=== PATIENT | male | born 1955 | race Caucasian/White ===

== ENCOUNTER 2018-04-09 09:51 | Emergency (ER) | payer OTHER ==
[~2018-04-09] VITALS: Ht 175.3 cm; Wt 130.9 kg
[2018-04-09] MEDS ORDERED: FLOMAX 0.40.4 MG/CAP PO (10:26)
[2018-04-09] MEDS ORDERED: PROSCAR 5MG5 MG PO (10:26)
[2018-04-09 10:48] LABS: COLLECTION METHOD CATHETER
[2018-04-09 10:53] LABS: MUCOUS Present /lpf; PH 5 (5-8); SQUAMOUS EPITHELIAL None Seen /hpf; URINE APPEARANCE Clear; URINE BACTERIA None Seen /hpf; URINE BILIRUBIN Negative (NEGATIVE); URINE BLOOD Negative (NEGATIVE); URINE COLOR Yellow; URINE GLUCOSE Negative (NEGATIVE); URINE KETONE Negative (NEGATIVE); URINE LEUKOCYTE ESTERASE Negative (NEGATIVE); URINE NITRATE Negative (NEGATIVE); URINE PROTEIN(semi-quant) Negative (NEGATIVE); URINE UROBILINOGEN Negative (NEGATIVE); URINE WBC 0-2 /hpf
[2018-04-09 11:57] VITALS: BP 136/99; PULSE 65; TEMP 98.1
== END 2018-04-09 11:12 | disposition home or self-care (01) ==
LOC: COL.ER 09:51
PROVIDERS: Emergency Medicine
DX: R33.9 Retention of urine, unspecified (principal); Z85.89 Personal history of malignant neoplasm of other organs and systems

== ENCOUNTER 2018-04-26 17:21 | Inpatient (IN) | payer OTHER ==
[~2018-04-26] VITALS: Ht 175.3 cm; Wt 132.2 kg
[~2018-04-26 17:21] MED LIST: ASPIRIN E.C. 8181 MG PO; DESYREL 50MG50 MG PO; FLOMAX 0.40.4 MG/CAP PO; GLUCOPHAGE850 MG/TAB PO; LEVOXYL0.075 MG PO; NORVASC 10MG10 MG PO; PAXIL40 MG PO; PROSCAR 5MG5 MG PO; ULTRAM 50MG TAB50 MG PO; ZESTRIL40 MG PO; ZOCOR 80MG80 MG PO
[2018-04-26 17:58] LABS: BASO # 0.1 (0.0-0.2); BASO % 0.5 % (0.0-2.0); EOS # 0.2 (0.0-0.7); EOS % 1.9 % (0-4.0); GRAN # 7.7 (1.4-6.5); GRAN % 69.2 % (42.2-75.2); HEMOGLOBIN 12.4 g/dl (13.5-18.0); LYMPH % 17.8 % (20.0-51.0); MEAN CELL VOLUME 85 fl (80.0-100.0); MEAN CORPUSCULAR HEMOGLOBIN 29 pg (27.0-31.0); MEAN CORPUSCULAR HGB CONC 34 g/dl (33.0-37.0); MEAN PLATELET VOLUME 8.9 fl (7.4-10.4); MONO # 0.9 (0.1-0.6); MONO % 8.2 % (1.7-9.3); PLATELET COUNT 288 K/mm3 (130-400); RED BLOOD COUNT 4.34 M/mm3 (4.20-5.60); REDCELL DISTRIBUTION WIDTH-CV 13.1 % (11.5-14.5)
[2018-04-26 18:00] LABS: HEMATOCRIT 36.7 % (42.0-52.0)
[2018-04-26 18:09] LABS: ALBUMIN 3.4 gm/dL (3.5-5.0); BILIRUBIN,TOTAL 0.4 mg/dL (0.0-1.0); C-REACTIVE PROTEIN 0.9 mg/dL (0.0-0.9); CALCIUM 8.9 mg/dL (8.4-10.2); CREATININE, serum 1.5 mg/dL (0.66-1.25); POTASSIUM 3.7 mmol/L (3.4-5.0); TOTAL PROTEIN 6.9 gm/dL (6.4-8.2)
[2018-04-26 18:17] LABS: TROPONIN-I 0.021 ng/mL (0.000-0.034)
[2018-04-26 18:47] LABS: COLLECTION METHOD CLEAN CATCH
[2018-04-26 18:55] LABS: MUCOUS Present /lpf; PH 7 (5-8); SQUAMOUS EPITHELIAL None Seen /hpf; URINE APPEARANCE Turbid; URINE BACTERIA Rare /hpf; URINE BILIRUBIN Negative (NEGATIVE); URINE BLOOD Negative (NEGATIVE); URINE COLOR Amber; URINE GLUCOSE 1+ (NEGATIVE); URINE KETONE Negative (NEGATIVE); URINE LEUKOCYTE ESTERASE 3+ (NEGATIVE); URINE NITRATE Positive (NEGATIVE); URINE PROTEIN(semi-quant) 3+ (NEGATIVE); URINE RBC >50 /hpf; URINE UROBILINOGEN Negative (NEGATIVE)
[2018-04-26 21:05] VITALS: BP 124/80; PULSE 69; TEMP 98.6
[2018-04-26] MEDS ORDERED: LOVENOX150 MG/ML SQ (22:27)
[2018-04-27] VITALS (7 sets, daily range): BP systolic 86–128; BP diastolic 38–77; PULSE 63–80; TEMP 97.8–99.8
[2018-04-27 06:43] LABS: HEMOGLOBIN 11.3 g/dl (13.5-18.0); MEAN CELL VOLUME 86 fl (80.0-100.0); MEAN CORPUSCULAR HEMOGLOBIN 29 pg (27.0-31.0); MEAN CORPUSCULAR HGB CONC 33 g/dl (33.0-37.0); MEAN PLATELET VOLUME 9.5 fl (7.4-10.4); PLATELET COUNT 285 K/mm3 (130-400); RED BLOOD COUNT 3.95 M/mm3 (4.20-5.60); REDCELL DISTRIBUTION WIDTH-CV 13.2 % (11.5-14.5)
[2018-04-27 06:48] LABS: HEMATOCRIT 33.8 % (42.0-52.0)
[2018-04-27 06:52] LABS: CALCIUM 8.5 mg/dL (8.4-10.2); CREATININE, serum 1.48 mg/dL (0.66-1.25); POTASSIUM 3.5 mmol/L (3.4-5.0)
[2018-04-27 08:19] LABS: BAND 7 % (0-10); EOSINOPHIL 2 % (0-4); LYMPHOCYTE 32 % (20.0-51.0); NEUTROPHILS 54 % (42.0-75.2)
[2018-04-27 08:23] LABS: PLATELET ESTIMATE NORMAL (NORMAL)
[2018-04-28] VITALS (7 sets, daily range): BP systolic 109–140; BP diastolic 51–91; PULSE 59–83; TEMP 98.2–99
[2018-04-28 11:24] LABS: CALCIUM 8.6 mg/dL (8.4-10.2); CREATININE, serum 1.32 mg/dL (0.66-1.25); POTASSIUM 3.6 mmol/L (3.4-5.0)
[2018-04-29 04:10] VITALS: BP 122/68; PULSE 59; TEMP 98.6
[2018-04-29 07:32] VITALS: BP 148/85; PULSE 63; TEMP 98.2
[2018-04-29] MEDS ORDERED: CEFTIN 250250 MG/TAB PO (09:06)
== END 2018-04-29 10:36 | disposition home or self-care (01) | DRG 683 ==
LOC: COL.ER 17:21 → MEDICAL 19:50 → COL.ER 19:50 → MEDICAL 04-27 14:50
PROVIDERS: Emergency Medicine; Nurse Practitioner; Physician Assistant
DX: N17.9 Acute kidney failure, unspecified (principal); N39.0 Urinary tract infection, site not specified; E86.0 Dehydration; I10 Essential (primary) hypertension; E11.9 Type 2 diabetes mellitus without complications; C76.0 Malignant neoplasm of head, face and neck; Z86.711 Personal history of pulmonary embolism; Z79.01 Long term (current) use of anticoagulants; Z86.718 Personal history of other venous thrombosis and embolism
CPT/HCPCS: 99223-AI; 99232-AI; G0378; J0696; J1650; J7030

== ENCOUNTER 2018-06-05 22:56 | Emergency (ER) | payer OTHER ==
[~2018-06-05] VITALS: Ht 175.3 cm; Wt 125.0 kg
[~2018-06-05 22:56] MED LIST changes: +CEFTIN 250250 MG/TAB PO; +LOVENOX150 MG/ML SQ
[2018-06-05 22:59] VITALS: TEMP 98.1
[2018-06-05 23:29] LABS: COLLECTION METHOD CATHETER
[2018-06-05 23:32] LABS: BASO % 0.5 % (0.0-2.0); EOS % 2.1 % (0-4.0); GRAN # 1.3 (1.4-6.5); GRAN % 64.9 % (42.2-75.2); HEMOGLOBIN 12.3 g/dl (13.5-18.0); LYMPH # 0.4 (1.2-3.4); LYMPH % 19.6 % (20.0-51.0); MEAN CELL VOLUME 85 fl (80.0-100.0); MEAN CORPUSCULAR HEMOGLOBIN 29 pg (27.0-31.0); MEAN CORPUSCULAR HGB CONC 34 g/dl (33.0-37.0); MEAN PLATELET VOLUME 8.9 fl (7.4-10.4); MONO # 0.2 (0.1-0.6); MONO % 12.4 % (1.7-9.3); PLATELET COUNT 79 K/mm3 (130-400); RED BLOOD COUNT 4.29 M/mm3 (4.20-5.60); REDCELL DISTRIBUTION WIDTH-CV 15.8 % (11.5-14.5)
[2018-06-05 23:33] LABS: HEMATOCRIT 36.3 % (42.0-52.0)
[2018-06-05 23:35] LABS: PH 6 (5-8); SQUAMOUS EPITHELIAL None Seen /hpf; URINE APPEARANCE Clear; URINE BACTERIA None Seen /hpf; URINE BILIRUBIN Negative (NEGATIVE); URINE BLOOD Negative (NEGATIVE); URINE COLOR Yellow; URINE GLUCOSE Negative (NEGATIVE); URINE KETONE Negative (NEGATIVE); URINE LEUKOCYTE ESTERASE Negative (NEGATIVE); URINE NITRATE Negative (NEGATIVE); URINE PROTEIN(semi-quant) Negative (NEGATIVE); URINE RBC 0-2 /hpf; URINE UROBILINOGEN Negative (NEGATIVE)
[2018-06-05 23:42] LABS: ALBUMIN 3.6 gm/dL (3.5-5.0); BILIRUBIN,TOTAL 0.5 mg/dL (0.0-1.0); CREATININE, serum 0.92 mg/dL (0.66-1.25); POTASSIUM 3.8 mmol/L (3.4-5.0); TOTAL PROTEIN 6.7 gm/dL (6.4-8.2)
[2018-06-06] MEDS ORDERED: NORVASC 10MG10 MG PO (00:27)
[2018-06-06] MEDS ORDERED: PROSCAR 5MG5 MG PO (00:28)
[2018-06-06] MEDS ORDERED: ASPIRIN 81M81 MG/TA2 PO (00:28)
[2018-06-06] MEDS ORDERED: LOVENOX150 MG/ML SQ (00:28)
[2018-06-06] MEDS ORDERED: GLUCOPHAGE850 MG/TAB PO (00:29)
[2018-06-06] MEDS ORDERED: SYNTHROID0.075 MG/T PO (00:29)
[2018-06-06] MEDS ORDERED: ZOCOR 80MG80 MG PO (00:30)
[2018-06-06] MEDS ORDERED: PAXIL40 MG PO (00:30)
[2018-06-06] MEDS ORDERED: FLOMAX 0.40.4 MG/CAP PO (00:30)
[2018-06-06] MEDS ORDERED: COZAAR 25MG25 MG/TAB (00:31)
[2018-06-06] MEDS ORDERED: DESYREL 50MG50 MG PO (00:31)
[2018-06-06] MEDS ORDERED: ULTRAM 50MG TAB50 MG PO (00:31)
[2018-06-06] MEDS ORDERED: OXY IR5 MG PO (00:31)
[2018-06-06 00:38] LABS: BAND 13 % (0-10); EOSINOPHIL 2 % (0-4); LYMPHOCYTE 21 % (20.0-51.0); MICROCYTOSIS 1+; NEUTROPHILS 56 % (42.0-75.2); PLATELET ESTIMATE DECREASED (NORMAL)
[2018-06-06 01:11] VITALS: BP 136/78; PULSE 74
== END 2018-06-06 01:12 | disposition home or self-care (01) ==
LOC: COL.ER 22:56
PROVIDERS: Nurse Practitioner
DX: R33.9 Retention of urine, unspecified (principal); I10 Essential (primary) hypertension; E11.9 Type 2 diabetes mellitus without complications; Z88.2 Allergy status to sulfonamides; Z79.82 Long term (current) use of aspirin; Z79.84 Long term (current) use of oral hypoglycemic drugs

== ENCOUNTER 2018-06-17 21:18 | Inpatient (IN) | payer OTHER ==
[~2018-06-17] VITALS: Ht 175.3 cm; Wt 125.0 kg
[~2018-06-17 21:18] MED LIST changes: +ASPIRIN 81M81 MG/TA2 PO; +COZAAR 25MG25 MG/TAB; +OXY IR5 MG PO; +SYNTHROID0.075 MG/T PO
[2018-06-17 22:02] LABS: HEMOGLOBIN 12.6 g/dl (13.5-18.0); MEAN CELL VOLUME 89 fl (80.0-100.0); MEAN CORPUSCULAR HEMOGLOBIN 29 pg (27.0-31.0); MEAN CORPUSCULAR HGB CONC 33 g/dl (33.0-37.0); MEAN PLATELET VOLUME 8.6 fl (7.4-10.4); PLATELET COUNT 212 K/mm3 (130-400); RED BLOOD COUNT 4.29 M/mm3 (4.20-5.60); REDCELL DISTRIBUTION WIDTH-CV 19.5 % (11.5-14.5)
[2018-06-17] MEDS ORDERED: MORPHINE 1515 MG/TAB PO (22:06)
[2018-06-17 22:09] LABS: ALANINE AMINOTRANSFERASE 40 U/L (21-72); ALBUMIN 3.7 gm/dL (3.5-5.0); ALKALINE PHOSPHATASE 98 U/L (50-136); ANION GAP 9 mmol/L (7-16); AST,SGOT 25 U/L (15-37); BILIRUBIN,TOTAL 0.5 mg/dL (0.0-1.0); BLOOD UREA NITROGEN 18 mg/dL (9-20); C-REACTIVE PROTEIN 1.4 mg/dL (0.0-0.9); CARBON DIOXIDE 28 mmol/L (22-30); CHLORIDE 105 mmol/L (98-107); CREATININE, serum 1.03 mg/dL (0.66-1.25); GLUCOSE 125 mg/dL (74-106); LIPASE 79 U/L (23-300); POTASSIUM 4.1 mmol/L (3.4-5.0); SODIUM 142 mmol/L (137-145); TOTAL PROTEIN 7.3 gm/dL (6.4-8.2)
[2018-06-17 22:18] LABS: TROPONIN-I < 0.012 ng/mL (0.000-0.034)
[2018-06-17 22:22] LABS: ERYTHROCYTE SEDIMENTATION RATE 28 mm/hr (0-30)
[2018-06-17 22:37] LABS: BAND 67 % (0-10); LYMPHOCYTE 10 % (20.0-51.0); NEUTROPHILS 14 % (42.0-75.2)
[2018-06-17 22:38] LABS: ANISOCYTOSIS 2+; PLATELET ESTIMATE NORMAL (NORMAL)
[2018-06-17 23:49] LABS: COLLECTION METHOD CATHETER
[2018-06-17 23:56] LABS: MUCOUS Present /lpf; PH 5 (5-8); SQUAMOUS EPITHELIAL 0-2 /hpf; URINE APPEARANCE Hazy; URINE BACTERIA Many /hpf; URINE BILIRUBIN Negative (NEGATIVE); URINE BLOOD 2+ (NEGATIVE); URINE COLOR Yellow; URINE GLUCOSE Negative (NEGATIVE); URINE KETONE Negative (NEGATIVE); URINE LEUKOCYTE ESTERASE 1+ (NEGATIVE); URINE NITRATE Positive (NEGATIVE); URINE PROTEIN(semi-quant) 1+ (NEGATIVE); URINE RBC 0-2 /hpf; URINE WBC >50 /hpf
[2018-06-18] VITALS (7 sets, daily range): BP systolic 110–142; BP diastolic 57–86; PULSE 68–78; TEMP 98.1–99.1
[2018-06-18 05:40] LABS: HEMOGLOBIN 10.9 g/dl (13.5-18.0); MEAN CELL VOLUME 87 fl (80.0-100.0); MEAN CORPUSCULAR HEMOGLOBIN 30 pg (27.0-31.0); MEAN CORPUSCULAR HGB CONC 34 g/dl (33.0-37.0); MEAN PLATELET VOLUME 8.8 fl (7.4-10.4); PLATELET COUNT 136 K/mm3 (130-400); REDCELL DISTRIBUTION WIDTH-CV 19.2 % (11.5-14.5)
[2018-06-18 05:48] LABS: HEMATOCRIT 32.1 % (42.0-52.0)
[2018-06-18 05:57] LABS: CALCIUM 8.1 mg/dL (8.4-10.2); CREATININE, serum 0.8 mg/dL (0.66-1.25)
[2018-06-18 07:08] LABS: BAND 44 % (0-10); BASOPHIL 2 % (0-2); LYMPHOCYTE 10 % (20.0-51.0); METAMYELOCYTE 2 % (0-0); MYELOCYTE 1 % (0-0); NEUTROPHILS 34 % (42.0-75.2)
[2018-06-18 07:09] LABS: PLATELET ESTIMATE NORMAL (NORMAL)
[2018-06-19 04:55] VITALS: BP 125/46; PULSE 67; TEMP 98.7
[2018-06-19 07:31] LABS: HEMOGLOBIN 10.8 g/dl (13.5-18.0); MEAN CELL VOLUME 90 fl (80.0-100.0); MEAN CORPUSCULAR HEMOGLOBIN 29 pg (27.0-31.0); MEAN CORPUSCULAR HGB CONC 33 g/dl (33.0-37.0); MEAN PLATELET VOLUME 9.1 fl (7.4-10.4); PLATELET COUNT 159 K/mm3 (130-400); RED BLOOD COUNT 3.67 M/mm3 (4.20-5.60); REDCELL DISTRIBUTION WIDTH-CV 19.6 % (11.5-14.5)
[2018-06-19 07:40] LABS: HEMATOCRIT 32.9 % (42.0-52.0)
[2018-06-19 07:55] LABS: CALCIUM 7.9 mg/dL (8.4-10.2); CREATININE, serum 0.78 mg/dL (0.66-1.25); POTASSIUM 3.7 mmol/L (3.4-5.0)
[2018-06-19 08:05] LABS: BAND 39 % (0-10); EOSINOPHIL 1 % (0-4); LYMPHOCYTE 9 % (20.0-51.0); METAMYELOCYTE 2 % (0-0); NEUTROPHILS 37 % (42.0-75.2)
[2018-06-19 08:06] LABS: HYPOCHROMIA 1+; PLATELET ESTIMATE NORMAL (NORMAL)
[2018-06-19 08:31] VITALS: BP 140/66; PULSE 66; TEMP 98
[2018-06-19 12:00] VITALS: BP 136/93; PULSE 70; TEMP 98.3
[2018-06-19 15:38] VITALS: BP 124/73; PULSE 77; TEMP 99.6
[2018-06-19 20:00] VITALS: BP 133/76; PULSE 73; TEMP 98.2
[2018-06-20 04:00] VITALS: BP 116/76; PULSE 68; TEMP 98.2
[2018-06-20 06:56] LABS: HEMOGLOBIN 11.1 g/dl (13.5-18.0); MEAN CELL VOLUME 86 fl (80.0-100.0); MEAN CORPUSCULAR HEMOGLOBIN 29 pg (27.0-31.0); MEAN CORPUSCULAR HGB CONC 34 g/dl (33.0-37.0); MEAN PLATELET VOLUME 9.1 fl (7.4-10.4); PLATELET COUNT 136 K/mm3 (130-400); RED BLOOD COUNT 3.86 M/mm3 (4.20-5.60); REDCELL DISTRIBUTION WIDTH-CV 19.7 % (11.5-14.5)
[2018-06-20 06:57] LABS: HEMATOCRIT 33.1 % (42.0-52.0)
[2018-06-20 07:15] LABS: CREATININE, serum 0.74 mg/dL (0.66-1.25)
[2018-06-20 07:22] LABS: BAND 34 % (0-10); EOSINOPHIL 2 % (0-4); LYMPHOCYTE 17 % (20.0-51.0); METAMYELOCYTE 2 % (0-0); NEUTROPHILS 31 % (42.0-75.2); NUCLEATED RED BLOOD CELL 2 (0-6)
[2018-06-20 07:23] VITALS: BP 132/85; PULSE 72; TEMP 98
[2018-06-20 07:23] LABS: ANISOCYTOSIS 1+; HYPOCHROMIA 1+; PLATELET ESTIMATE NORMAL (NORMAL)
[2018-06-20 07:59] LABS: CALCIUM 8.2 mg/dL (8.4-10.2); POTASSIUM 3.4 mmol/L (3.4-5.0)
[2018-06-20 11:30] VITALS: BP 99/65; PULSE 73; TEMP 98.7
[2018-06-20] MEDS ORDERED: OMNICEF 300MG300 MG PO (13:45)
== END 2018-06-20 14:24 | disposition home or self-care (01) | DRG 690 ==
LOC: COL.ER 21:18 → SURG 06-18 00:11
PROVIDERS: Emergency Medicine; Family Medicine; Nurse Practitioner; Nurse Practitioner Family
DX: N10 Acute pyelonephritis (principal); N39.0 Urinary tract infection, site not specified; I10 Essential (primary) hypertension; D70.1 Agranulocytosis secondary to cancer chemotherapy; T45.1X5A Adverse effect of antineoplastic and immunosuppressive drugs, initial encounter; C76.0 Malignant neoplasm of head, face and neck; E11.9 Type 2 diabetes mellitus without complications; Z86.711 Personal history of pulmonary embolism; Z79.01 Long term (current) use of anticoagulants; B96.1 Klebsiella pneumoniae [K. pneumoniae] as the cause of diseases classified elsewhere; N40.1 Benign prostatic hyperplasia with lower urinary tract symptoms; R33.8 Other retention of urine
CPT/HCPCS: 99223-AI; 99232-AI; 99239; J0696; J1170; J1447; J1650; J2060; J2405; J3370; J7030; J7040

== ENCOUNTER 2018-06-26 08:02 | Emergency (ER) | payer OTHER ==
[~2018-06-26] VITALS: Ht 152.4 cm; Wt 125.0 kg
[~2018-06-26 08:02] MED LIST changes: +MORPHINE 1515 MG/TAB PO; +OMNICEF 300MG300 MG PO
[2018-06-26 08:05] VITALS: TEMP 97.9
[2018-06-26 08:53] LABS: COLLECTION METHOD CATHETER
[2018-06-26 09:08] LABS: MUCOUS Present /lpf; PH 6 (5-8); URINE APPEARANCE Hazy; URINE BACTERIA Rare /hpf; URINE BILIRUBIN Negative (NEGATIVE); URINE BLOOD Negative (NEGATIVE); URINE COLOR Yellow; URINE GLUCOSE Negative (NEGATIVE); URINE KETONE Negative (NEGATIVE); URINE LEUKOCYTE ESTERASE 1+ (NEGATIVE); URINE NITRATE Negative (NEGATIVE); URINE PROTEIN(semi-quant) 1+ (NEGATIVE); URINE UROBILINOGEN Negative (NEGATIVE)
[2018-06-26] MEDS ORDERED: MACROBID 1100 MG/CAP PO (09:21)
[2018-06-26 09:54] VITALS: BP 144/106; PULSE 72
== END 2018-06-26 09:58 | disposition home or self-care (01) ==
LOC: COL.ER 08:02
PROVIDERS: Emergency Medicine
DX: N39.0 Urinary tract infection, site not specified (principal); Z85.89 Personal history of malignant neoplasm of other organs and systems; Z79.84 Long term (current) use of oral hypoglycemic drugs

== ENCOUNTER 2018-07-02 14:00 | Outpatient (RCR) | payer OTHER ==
[2018-04-15 10:59] VITALS: BP 149/85; PULSE 57; TEMP 98
[2018-04-16 14:24] VITALS: BP 124/77; PULSE 77; TEMP 97.9
[2018-04-19 14:12] VITALS: BP 123/85; PULSE 71; TEMP 98.6
[2018-04-23 13:21] VITALS: BP 104/68; PULSE 71; TEMP 98.4
[2018-04-23 13:33] LABS: HEMATOCRIT 38.3 % (42.0-52.0); HEMOGLOBIN 12.7 g/dl (13.5-18.0); MEAN CELL VOLUME 87 fl (80.0-100.0); MEAN CORPUSCULAR HEMOGLOBIN 29 pg (27.0-31.0); MEAN CORPUSCULAR HGB CONC 33 g/dl (33.0-37.0); PLATELET COUNT 318 K/mm3 (130-400); REDCELL DISTRIBUTION WIDTH-CV 13.2 % (11.5-14.5)
[2018-04-23 13:40] LABS: ALBUMIN 3.4 gm/dL (3.5-5.0); BILIRUBIN,TOTAL 0.5 mg/dL (0.0-1.0); CALCIUM 9.3 mg/dL (8.4-10.2); CREATININE, serum 0.76 mg/dL (0.66-1.25); MAGNESIUM 1.7 mg/dL (1.6-2.3); POTASSIUM 3.7 mmol/L (3.4-5.0); TOTAL PROTEIN 6.7 gm/dL (6.4-8.2)
[2018-04-23 13:53] LABS: BAND 5 % (0-10); BASOPHIL 1 % (0-2); LYMPHOCYTE 29 % (20.0-51.0); NEUTROPHILS 64 % (42.0-75.2); PLATELET ESTIMATE NORMAL (NORMAL)
[2018-04-26 15:00] VITALS: BP 91/63; PULSE 84; TEMP 98
[2018-04-26 15:19] LABS: HEMATOCRIT 38.5 % (42.0-52.0); HEMOGLOBIN 13.1 g/dl (13.5-18.0); MEAN CELL VOLUME 85 fl (80.0-100.0); MEAN CORPUSCULAR HEMOGLOBIN 29 pg (27.0-31.0); MEAN CORPUSCULAR HGB CONC 34 g/dl (33.0-37.0); PLATELET COUNT 330 K/mm3 (130-400); RED BLOOD COUNT 4.52 M/mm3 (4.20-5.60); REDCELL DISTRIBUTION WIDTH-CV 13.2 % (11.5-14.5)
[2018-04-26 15:37] LABS: ALBUMIN 3.6 gm/dL (3.5-5.0); BILIRUBIN,TOTAL 0.4 mg/dL (0.0-1.0); CALCIUM 9.4 mg/dL (8.4-10.2); CREATININE, serum 1.42 mg/dL (0.66-1.25); POTASSIUM 3.7 mmol/L (3.4-5.0); TOTAL PROTEIN 7.3 gm/dL (6.4-8.2)
[2018-04-30 13:30] VITALS: BP 101/64; PULSE 87; TEMP 98
[2018-04-30 13:49] LABS: MEAN CELL VOLUME 85 fl (80.0-100.0); MEAN CORPUSCULAR HEMOGLOBIN 28 pg (27.0-31.0); MEAN CORPUSCULAR HGB CONC 33 g/dl (33.0-37.0); MEAN PLATELET VOLUME 8.9 fl (7.4-10.4); PLATELET COUNT 255 K/mm3 (130-400); RED BLOOD COUNT 3.87 M/mm3 (4.20-5.60); REDCELL DISTRIBUTION WIDTH-CV 13.4 % (11.5-14.5)
[2018-04-30 13:53] LABS: HEMATOCRIT 32.9 % (42.0-52.0)
[2018-04-30 13:58] LABS: ALBUMIN 2.8 gm/dL (3.5-5.0); BILIRUBIN,TOTAL 0.1 mg/dL (0.0-1.0); CALCIUM 7.9 mg/dL (8.4-10.2); CREATININE, serum 1.05 mg/dL (0.66-1.25); POTASSIUM 3.1 mmol/L (3.4-5.0)
[2018-04-30 14:12] LABS: BAND 12 % (0-10); LYMPHOCYTE 26 % (20.0-51.0); METAMYELOCYTE 1 % (0-0); NEUTROPHILS 52 % (42.0-75.2); PLATELET ESTIMATE NORMAL (NORMAL)
[2018-05-05 09:00] LABS: MAGNESIUM 1.4 mg/dL (1.6-2.3)
[2018-05-07 13:13] LABS: HEMOGLOBIN 10.2 g/dl (13.5-18.0); MEAN CELL VOLUME 86 fl (80.0-100.0); MEAN CORPUSCULAR HEMOGLOBIN 28 pg (27.0-31.0); MEAN CORPUSCULAR HGB CONC 33 g/dl (33.0-37.0); MEAN PLATELET VOLUME 8.7 fl (7.4-10.4); PLATELET COUNT 251 K/mm3 (130-400); RED BLOOD COUNT 3.64 M/mm3 (4.20-5.60); REDCELL DISTRIBUTION WIDTH-CV 13.1 % (11.5-14.5)
[2018-05-07 13:16] LABS: HEMATOCRIT 31.2 % (42.0-52.0)
[2018-05-07 13:23] VITALS: BP 105/72; PULSE 82; TEMP 98.4
[2018-05-07 13:23] LABS: BILIRUBIN,TOTAL 0.2 mg/dL (0.0-1.0); CALCIUM 8.1 mg/dL (8.4-10.2); CREATININE, serum 0.91 mg/dL (0.66-1.25); POTASSIUM 3.4 mmol/L (3.4-5.0); TOTAL PROTEIN 6.7 gm/dL (6.4-8.2)
[2018-05-07 13:28] LABS: LYMPHOCYTE 15 % (20.0-51.0); NEUTROPHILS 79 % (42.0-75.2); PLATELET ESTIMATE NORMAL (NORMAL)
[2018-05-07 13:29] LABS: HYPOCHROMIA 3+
[2018-05-07 13:32] LABS: POIKILOCYTOSIS 1+
[2018-05-14 13:10] VITALS: BP 91/59; PULSE 78; TEMP 97.4
[2018-05-14 13:12] LABS: HEMATOCRIT 37.5 % (42.0-52.0); HEMOGLOBIN 12.8 g/dl (13.5-18.0); MEAN CELL VOLUME 83 fl (80.0-100.0); MEAN CORPUSCULAR HEMOGLOBIN 28 pg (27.0-31.0); MEAN CORPUSCULAR HGB CONC 34 g/dl (33.0-37.0); MEAN PLATELET VOLUME 9.1 fl (7.4-10.4); PLATELET COUNT 228 K/mm3 (130-400); RED BLOOD COUNT 4.51 M/mm3 (4.20-5.60); REDCELL DISTRIBUTION WIDTH-CV 13.1 % (11.5-14.5)
[2018-05-14 13:18] LABS: MAGNESIUM 1.6 mg/dL (1.6-2.3)
[2018-05-14 13:45] LABS: BAND 2 % (0-10); LYMPHOCYTE 14 % (20.0-51.0); NEUTROPHILS 80 % (42.0-75.2); PLATELET ESTIMATE NORMAL (NORMAL)
[2018-05-21 13:19] VITALS: BP 111/74; PULSE 65; TEMP 97.9
[2018-05-21 13:40] LABS: HEMATOCRIT 37.1 % (42.0-52.0); HEMOGLOBIN 12.4 g/dl (13.5-18.0); MEAN CELL VOLUME 84 fl (80.0-100.0); MEAN CORPUSCULAR HEMOGLOBIN 28 pg (27.0-31.0); MEAN CORPUSCULAR HGB CONC 33 g/dl (33.0-37.0); MEAN PLATELET VOLUME 9.2 fl (7.4-10.4); PLATELET COUNT 160 K/mm3 (130-400); RED BLOOD COUNT 4.41 M/mm3 (4.20-5.60); REDCELL DISTRIBUTION WIDTH-CV 13.5 % (11.5-14.5)
[2018-05-21 13:46] LABS: CREATININE, serum 1.01 mg/dL (0.66-1.25)
[2018-05-21 13:47] LABS: BAND 8 % (0-10); LYMPHOCYTE 24 % (20.0-51.0); NEUTROPHILS 64 % (42.0-75.2)
[2018-05-21 13:49] LABS: PLATELET ESTIMATE NORMAL (NORMAL)
[2018-05-28 13:17] LABS: HEMATOCRIT 37.1 % (42.0-52.0); HEMOGLOBIN 12.4 g/dl (13.5-18.0); MEAN CELL VOLUME 85 fl (80.0-100.0); MEAN CORPUSCULAR HEMOGLOBIN 28 pg (27.0-31.0); MEAN CORPUSCULAR HGB CONC 33 g/dl (33.0-37.0); MEAN PLATELET VOLUME 9.1 fl (7.4-10.4); PLATELET COUNT 118 K/mm3 (130-400); RED BLOOD COUNT 4.37 M/mm3 (4.20-5.60); REDCELL DISTRIBUTION WIDTH-CV 14.5 % (11.5-14.5)
[2018-05-28 13:24] VITALS: BP 120/78; PULSE 72; TEMP 98
[2018-05-28 13:29] LABS: BAND 10 % (0-10); LYMPHOCYTE 18 % (20.0-51.0); NEUTROPHILS 68 % (42.0-75.2); NUCLEATED RED BLOOD CELL 1 (0-6)
[2018-05-28 13:31] LABS: ALBUMIN 3.5 gm/dL (3.5-5.0); BILIRUBIN,TOTAL 0.2 mg/dL (0.0-1.0); CALCIUM 9.1 mg/dL (8.4-10.2); CREATININE, serum 0.98 mg/dL (0.66-1.25); MAGNESIUM 1.5 mg/dL (1.6-2.3); PLATELET ESTIMATE DECREASED (NORMAL); POTASSIUM 4.1 mmol/L (3.4-5.0); TOTAL PROTEIN 6.5 gm/dL (6.4-8.2)
[2018-05-28 13:32] LABS: HYPOCHROMIA 1+
[2018-06-04 13:00] VITALS: BP 120/82; PULSE 75; TEMP 98.4
[2018-06-04 13:19] LABS: MEAN CELL VOLUME 86 fl (80.0-100.0); MEAN CORPUSCULAR HEMOGLOBIN 28 pg (27.0-31.0); MEAN CORPUSCULAR HGB CONC 33 g/dl (33.0-37.0); MEAN PLATELET VOLUME 8.8 fl (7.4-10.4); PLATELET COUNT 89 K/mm3 (130-400); RED BLOOD COUNT 4.22 M/mm3 (4.20-5.60); REDCELL DISTRIBUTION WIDTH-CV 15.5 % (11.5-14.5)
[2018-06-04 13:22] LABS: HEMATOCRIT 36.3 % (42.0-52.0)
[2018-06-04 13:25] LABS: CREATININE, serum 0.94 mg/dL (0.66-1.25); MAGNESIUM 1.7 mg/dL (1.6-2.3)
[2018-06-04 13:30] LABS: ALBUMIN 3.6 gm/dL (3.5-5.0); BILIRUBIN,TOTAL 0.3 mg/dL (0.0-1.0); CREATININE, serum 0.95 mg/dL (0.66-1.25); POTASSIUM 4.1 mmol/L (3.4-5.0); TOTAL PROTEIN 6.9 gm/dL (6.4-8.2)
[2018-06-04 13:53] LABS: BAND 8 % (0-10); LYMPHOCYTE 11 % (20.0-51.0); NEUTROPHILS 66 % (42.0-75.2); PLATELET ESTIMATE DECREASED (NORMAL)
[2018-06-04 13:54] LABS: ANISOCYTOSIS 1+
[2018-06-11 13:32] LABS: HEMOGLOBIN 12.4 g/dl (13.5-18.0); MEAN CELL VOLUME 85 fl (80.0-100.0); MEAN CORPUSCULAR HEMOGLOBIN 29 pg (27.0-31.0); MEAN CORPUSCULAR HGB CONC 34 g/dl (33.0-37.0); MEAN PLATELET VOLUME 8.8 fl (7.4-10.4); PLATELET COUNT 146 K/mm3 (130-400); REDCELL DISTRIBUTION WIDTH-CV 16.9 % (11.5-14.5)
[2018-06-11 13:36] VITALS: BP 108/66; PULSE 93; TEMP 98.4
[2018-06-11 13:36] LABS: HEMATOCRIT 36.7 % (42.0-52.0)
[2018-06-11 13:55] LABS: BAND 30 % (0-10); EOSINOPHIL 2 % (0-4); LYMPHOCYTE 14 % (20.0-51.0); MICROCYTOSIS 1+; NEUTROPHILS 46 % (42.0-75.2)
[2018-06-11 13:56] LABS: ANISOCYTOSIS 2+; PLATELET ESTIMATE NORMAL (NORMAL)
[2018-06-11 13:57] LABS: CREATININE, serum 0.86 mg/dL (0.66-1.25); MAGNESIUM 1.2 mg/dL (1.6-2.3)
[2018-06-16 10:51] VITALS: BP 114/80; PULSE 81; TEMP 98.3
[2018-06-16 10:56] LABS: HEMATOCRIT 37.1 % (42.0-52.0); HEMOGLOBIN 12.4 g/dl (13.5-18.0); MEAN CELL VOLUME 87 fl (80.0-100.0); MEAN CORPUSCULAR HEMOGLOBIN 29 pg (27.0-31.0); MEAN CORPUSCULAR HGB CONC 33 g/dl (33.0-37.0); MEAN PLATELET VOLUME 8.9 fl (7.4-10.4); PLATELET COUNT 203 K/mm3 (130-400); RED BLOOD COUNT 4.26 M/mm3 (4.20-5.60); REDCELL DISTRIBUTION WIDTH-CV 18.5 % (11.5-14.5)
[2018-06-16 11:05] LABS: ALBUMIN 3.6 gm/dL (3.5-5.0); BILIRUBIN,TOTAL 0.5 mg/dL (0.0-1.0); CALCIUM 9.2 mg/dL (8.4-10.2); CREATININE, serum 0.88 mg/dL (0.66-1.25); TOTAL PROTEIN 6.9 gm/dL (6.4-8.2)
[2018-06-16 11:19] LABS: EOSINOPHIL 2 % (0-4); LYMPHOCYTE 48 % (20.0-51.0); NEUTROPHILS 40 % (42.0-75.2)
[2018-06-16 11:25] LABS: PLATELET ESTIMATE NORMAL (NORMAL)
[2018-06-25 13:10] LABS: HEMATOCRIT 36.3 % (42.0-52.0); HEMOGLOBIN 12.3 g/dl (13.5-18.0); MEAN CELL VOLUME 86 fl (80.0-100.0); MEAN CORPUSCULAR HEMOGLOBIN 29 pg (27.0-31.0); MEAN CORPUSCULAR HGB CONC 34 g/dl (33.0-37.0); MEAN PLATELET VOLUME 9.6 fl (7.4-10.4); PLATELET COUNT 120 K/mm3 (130-400); RED BLOOD COUNT 4.22 M/mm3 (4.20-5.60); REDCELL DISTRIBUTION WIDTH-CV 19.9 % (11.5-14.5)
[2018-06-25 13:13] VITALS: BP 112/78; PULSE 86; TEMP 98.2
[2018-06-25 13:33] LABS: ALBUMIN 3.6 gm/dL (3.5-5.0); BILIRUBIN,TOTAL 0.5 mg/dL (0.0-1.0); CALCIUM 8.9 mg/dL (8.4-10.2); CREATININE, serum 0.95 mg/dL (0.66-1.25); MAGNESIUM 1.4 mg/dL (1.6-2.3); POTASSIUM 3.3 mmol/L (3.4-5.0); TOTAL PROTEIN 6.9 gm/dL (6.4-8.2)
[2018-06-25 14:08] LABS: BAND 22 % (0-10); EOSINOPHIL 1 % (0-4); LYMPHOCYTE 17 % (20.0-51.0); METAMYELOCYTE 2 % (0-0); NEUTROPHILS 42 % (42.0-75.2)
[2018-06-25 14:09] LABS: ANISOCYTOSIS 2+; PLATELET ESTIMATE DECREASED (NORMAL)
[2018-06-25 14:10] LABS: BURR CELLS 1+; OVALOCYTES 1+
[2018-06-25 14:11] LABS: POLYCHROMASIA 1+
[~2018-07-02] VITALS: Ht 175.3 cm; Wt 120.5 kg
[2018-07-02 13:12] VITALS: BP 125/82; PULSE 73; TEMP 98.3
[2018-07-02 13:14] LABS: HEMOGLOBIN 12.3 g/dl (13.5-18.0); MEAN CELL VOLUME 89 fl (80.0-100.0); MEAN CORPUSCULAR HEMOGLOBIN 30 pg (27.0-31.0); MEAN CORPUSCULAR HGB CONC 33 g/dl (33.0-37.0); PLATELET COUNT 173 K/mm3 (130-400); RED BLOOD COUNT 4.16 M/mm3 (4.20-5.60); REDCELL DISTRIBUTION WIDTH-CV 20.7 % (11.5-14.5)
[2018-07-02 13:15] LABS: HEMATOCRIT 36.9 % (42.0-52.0)
[2018-07-02 13:23] LABS: ALBUMIN 3.6 gm/dL (3.5-5.0); BILIRUBIN,TOTAL 0.6 mg/dL (0.0-1.0); CALCIUM 9.1 mg/dL (8.4-10.2); CREATININE, serum 1.02 mg/dL (0.66-1.25); POTASSIUM 3.8 mmol/L (3.4-5.0); TOTAL PROTEIN 7.1 gm/dL (6.4-8.2)
[~2018-07-02 14:00] MED LIST changes: +MACROBID 1100 MG/CAP PO
[2018-07-02 14:01] LABS: BAND 22 % (0-10); EOSINOPHIL 1 % (0-4); LYMPHOCYTE 19 % (20.0-51.0); NEUTROPHILS 54 % (42.0-75.2)
[2018-07-02 14:03] LABS: PLATELET ESTIMATE NORMAL (NORMAL)
== END 2018-07-02 14:17 | disposition home or self-care (01) ==
LOC: EUO 14:00
PROVIDERS: Internal Medicine Medical Oncology; Radiology Radiation Oncology
DX: Z51.11 Encounter for antineoplastic chemotherapy (principal); C01 Malignant neoplasm of base of tongue; I10 Essential (primary) hypertension; R19.7 Diarrhea, unspecified; R11.0 Nausea; Z45.2 Encounter for adjustment and management of vascular access device; Z95.9 Presence of cardiac and vascular implant and graft, unspecified; Z48.00 Encounter for change or removal of nonsurgical wound dressing
CPT/HCPCS: C1751

== ENCOUNTER 2018-07-13 11:55 | Observation (INO) | payer OTHER ==
[~2018-07-13] VITALS: Ht 175.3 cm; Wt 120.0 kg
[2018-07-13] VITALS (7 sets, daily range): BP systolic 103–131; BP diastolic 56–89; PULSE 52–105; TEMP 97.5–98.4
[~2018-07-13 11:55] MED LIST changes: -CELEXA 20MG20 MG/TAB PO; -COZAAR 50MG50 MG/TAB PO; -GLUCOPHAGE1000 MG PO; -MAGIC MOUTH PO; -NYSTATIN OR100 MU/ML PO; -ZOFRAN ODT8 MG PO
[2018-07-13 12:22] LABS: HEMATOCRIT 37.9 % (42.0-52.0); HEMOGLOBIN 13.1 g/dl (13.5-18.0); MEAN CELL VOLUME 88 fl (80.0-100.0); MEAN CORPUSCULAR HEMOGLOBIN 31 pg (27.0-31.0); MEAN CORPUSCULAR HGB CONC 35 g/dl (33.0-37.0); MEAN PLATELET VOLUME 9.2 fl (7.4-10.4); PLATELET COUNT 213 K/mm3 (130-400); RED BLOOD COUNT 4.29 M/mm3 (4.20-5.60)
[2018-07-13 12:28] LABS: PROTHROMBIN TIME 11.6 SECONDS (9.7-12.8)
[2018-07-13 12:31] LABS: PARTIAL THROMBOPLASTIN TIME 32.6 SECONDS (26.0-37.0)
[2018-07-13 12:34] LABS: ALANINE AMINOTRANSFERASE 44 U/L (21-72); ALBUMIN 3.8 gm/dL (3.5-5.0); ALKALINE PHOSPHATASE 81 U/L (50-136); ANION GAP 12 mmol/L (7-16); AST,SGOT 26 U/L (15-37); BILIRUBIN,TOTAL 0.6 mg/dL (0.0-1.0); BLOOD UREA NITROGEN 18 mg/dL (9-20); CALCIUM 9.1 mg/dL (8.4-10.2); CARBON DIOXIDE 25 mmol/L (22-30); CHLORIDE 102 mmol/L (98-107); CREATININE, serum 1.23 mg/dL (0.66-1.25); GLUCOSE 182 mg/dL (74-106); POTASSIUM 3.8 mmol/L (3.4-5.0); SODIUM 138 mmol/L (137-145); TOTAL PROTEIN 7.4 gm/dL (6.4-8.2)
[2018-07-13 12:35] LABS: BAND 13 % (0-10); BASOPHIL 1 % (0-2); EOSINOPHIL 2 % (0-4); LYMPHOCYTE 17 % (20.0-51.0); METAMYELOCYTE 1 % (0-0); NEUTROPHILS 53 % (42.0-75.2)
[2018-07-13 12:36] LABS: PLATELET ESTIMATE NORMAL (NORMAL)
[2018-07-13] MEDS ORDERED: ASPIRIN 81M81 MG/TA2 PO (13:46)
[2018-07-13] MEDS ORDERED: NYSTATIN OR100 MU/ML PO (13:47)
[2018-07-13] MEDS ORDERED: ZOFRAN ODT8 MG PO (13:47)
[2018-07-13] MEDS ORDERED: MAGIC MOUTH PO (13:48)
[2018-07-13] MEDS ORDERED: GLUCOPHAGE1000 MG PO (13:49)
[2018-07-13] MEDS ORDERED: COZAAR 50MG50 MG/TAB PO (13:49)
[2018-07-13] MEDS ORDERED: CELEXA 20MG20 MG/TAB PO (13:50)
[2018-07-13 15:19] LABS: COLLECTION METHOD CLEAN CATCH
[2018-07-13 15:27] LABS: HYALINE CAST >12 /lpf; MUCOUS Present /lpf; PH 6 (5-8); SQUAMOUS EPITHELIAL 0-2 /hpf; URINE APPEARANCE Hazy; URINE BACTERIA None Seen /hpf; URINE BILIRUBIN Negative (NEGATIVE); URINE BLOOD Negative (NEGATIVE); URINE COLOR Amber; URINE GLUCOSE Negative (NEGATIVE); URINE KETONE Negative (NEGATIVE); URINE LEUKOCYTE ESTERASE Negative (NEGATIVE); URINE NITRATE Negative (NEGATIVE); URINE PROTEIN(semi-quant) 1+ (NEGATIVE); URINE RBC 0-2 /hpf
[2018-07-13 15:29] LABS: TROPONIN-I < 0.012 ng/mL (0.000-0.034)
[2018-07-14] VITALS (7 sets, daily range): BP systolic 105–142; BP diastolic 76–94; PULSE 52–57; TEMP 97.8–98.5
[2018-07-14 06:58] LABS: MEAN CELL VOLUME 91 fl (80.0-100.0); MEAN CORPUSCULAR HGB CONC 34 g/dl (33.0-37.0); MEAN PLATELET VOLUME 8.9 fl (7.4-10.4); PLATELET COUNT 146 K/mm3 (130-400); RED BLOOD COUNT 3.44 M/mm3 (4.20-5.60); REDCELL DISTRIBUTION WIDTH-CV 19.8 % (11.5-14.5)
[2018-07-14 06:59] LABS: HEMATOCRIT 31.3 % (42.0-52.0); HEMOGLOBIN 10.5 g/dl (13.5-18.0); MEAN CORPUSCULAR HEMOGLOBIN 31 pg (27.0-31.0)
[2018-07-14 07:09] LABS: CALCIUM 7.8 mg/dL (8.4-10.2); CREATININE, serum 0.87 mg/dL (0.66-1.25); POTASSIUM 3.9 mmol/L (3.4-5.0)
[2018-07-14 07:19] LABS: BAND 13 % (0-10); EOSINOPHIL 6 % (0-4); LYMPHOCYTE 25 % (20.0-51.0); NEUTROPHILS 42 % (42.0-75.2); PLATELET ESTIMATE DECREASED (NORMAL)
[2018-07-14 07:20] LABS: ANISOCYTOSIS 1+
[2018-07-15 00:13] VITALS: BP 158/92; PULSE 55; TEMP 98.4
[2018-07-15 05:09] VITALS: BP 140/58; PULSE 56; TEMP 98.3
[2018-07-15 06:53] LABS: BASO % 0.9 % (0.0-2.0); EOS # 0.1 (0.0-0.7); EOS % 2.5 % (0-4.0); GRAN # 1.9 (1.4-6.5); GRAN % 59.7 % (42.2-75.2); LYMPH # 0.7 (1.2-3.4); LYMPH % 22.3 % (20.0-51.0); MEAN CELL VOLUME 88 fl (80.0-100.0); MEAN CORPUSCULAR HEMOGLOBIN 30 pg (27.0-31.0); MEAN CORPUSCULAR HGB CONC 34 g/dl (33.0-37.0); MEAN PLATELET VOLUME 9.4 fl (7.4-10.4); MONO # 0.4 (0.1-0.6); MONO % 11.5 % (1.7-9.3); PLATELET COUNT 157 K/mm3 (130-400); RED BLOOD COUNT 3.63 M/mm3 (4.20-5.60); REDCELL DISTRIBUTION WIDTH-CV 19.3 % (11.5-14.5)
[2018-07-15 07:01] LABS: CALCIUM 8.8 mg/dL (8.4-10.2); CREATININE, serum 0.73 mg/dL (0.66-1.25); POTASSIUM 3.6 mmol/L (3.4-5.0)
[2018-07-15 08:17] VITALS: BP 122/79; PULSE 66; TEMP 98
[2018-07-15] MEDS ORDERED: NYSTATIN OR100 MU/ML PO (11:24)
[2018-07-15] MEDS ORDERED: FLOMAX 0.40.4 MG/CAP PO (11:24)
== END 2018-07-15 12:37 | disposition home or self-care (01) ==
LOC: COL.ER 11:55 → SURG 14:51
PROVIDERS: Emergency Medicine; Hospitalist; Physician Assistant
DX: I95.9 Hypotension, unspecified (principal); R42 Dizziness and giddiness; E11.9 Type 2 diabetes mellitus without complications; F32.9 Major depressive disorder, single episode, unspecified; N40.0 Benign prostatic hyperplasia without lower urinary tract symptoms; Z88.6 Allergy status to analgesic agent; Z79.82 Long term (current) use of aspirin; Z79.84 Long term (current) use of oral hypoglycemic drugs; Z88.2 Allergy status to sulfonamides; Z85.828 Personal history of other malignant neoplasm of skin; Z86.711 Personal history of pulmonary embolism
CPT/HCPCS: G0378; J2405; J7030

== ENCOUNTER → 2018-07-13 | Outpatient (CLI) | payer OTHER ==
[~2018-07-13] MED LIST changes: +CELEXA 20MG20 MG/TAB PO; +COZAAR 50MG50 MG/TAB PO; +GLUCOPHAGE1000 MG PO; +MAGIC MOUTH PO; +NYSTATIN OR100 MU/ML PO; +ZOFRAN ODT8 MG PO
== END ==
LOC: COL.LAB 11:44
DX: C01 Malignant neoplasm of base of tongue (principal); I10 Essential (primary) hypertension

== ENCOUNTER → 2018-07-13 | Outpatient (CLI) | payer OTHER | LOC: COL.LAB 11:47 | DX: C10.9 Malignant neoplasm of oropharynx, unspecified (principal) ==

== ENCOUNTER 2018-09-29 22:56 | Emergency (ER) | payer OTHER ==
[~2018-09-29 22:56] MED LIST changes: +CELEXA 20MG20 MG/TAB PO; +COZAAR 50MG50 MG/TAB PO; +GLUCOPHAGE1000 MG PO; +MAGIC MOUTH PO; +NYSTATIN OR100 MU/ML PO; +ZOFRAN ODT8 MG PO
[2018-09-29 23:01] VITALS: TEMP 98.9
[2018-09-29 23:28] LABS: COLLECTION METHOD CATHETER
[2018-09-29 23:36] LABS: PH 6 (5-8); SQUAMOUS EPITHELIAL None Seen /hpf; URINE APPEARANCE Hazy; URINE BACTERIA Rare /hpf; URINE BILIRUBIN Negative (NEGATIVE); URINE BLOOD Negative (NEGATIVE); URINE COLOR Yellow; URINE GLUCOSE Negative (NEGATIVE); URINE KETONE Negative (NEGATIVE); URINE LEUKOCYTE ESTERASE 2+ (NEGATIVE); URINE NITRATE Positive (NEGATIVE); URINE PROTEIN(semi-quant) Negative (NEGATIVE); URINE RBC 0-2 /hpf; URINE UROBILINOGEN Negative (NEGATIVE)
[2018-09-30] MEDS ORDERED: CEFTIN500 MG PO (00:07)
[2018-09-30 00:34] VITALS: BP 112/81; PULSE 61
[2018-10-02] MEDS ORDERED: CIPRO 500MG TA500 MG PO (15:10)
== END 2018-09-30 00:36 | disposition home or self-care (01) ==
LOC: COL.ER 22:56
PROVIDERS: Emergency Medicine
DX: R33.9 Retention of urine, unspecified (principal); N39.0 Urinary tract infection, site not specified; E11.9 Type 2 diabetes mellitus without complications; I10 Essential (primary) hypertension; Z88.2 Allergy status to sulfonamides; Z79.82 Long term (current) use of aspirin

== ENCOUNTER 2019-11-26 02:14 | Emergency (ER) | payer OTHER ==
[~2019-11-26] VITALS: Ht 172.7 cm; Wt 129.5 kg
[~2019-11-26 02:14] MED LIST changes: +CEFTIN500 MG PO; +CIPRO 500MG TA500 MG PO
[2019-11-26] MEDS ORDERED: PRINIVIL10 MG (02:32)
[2019-11-26] MEDS ORDERED: HYTRIN 2MG CAPSU2 MG (02:32)
[2019-11-26] MEDS ORDERED: CEPHALEXIN500 M1 PO (02:36)
[2019-11-26 04:02] VITALS: BP 119/79; PULSE 82; TEMP 98.4
== END 2019-11-26 04:10 | disposition home or self-care (01) ==
LOC: COL.ER 02:14
DX: R04.0 Epistaxis (principal); I10 Essential (primary) hypertension; Z79.82 Long term (current) use of aspirin

== ENCOUNTER 2020-06-03 22:46 | Emergency (ER) | payer MEDICARE ==
[~2020-06-03] VITALS: Ht 175.3 cm; Wt 127.3 kg
[~2020-06-03 22:46] MED LIST changes: +CEPHALEXIN500 M1 PO; +HYTRIN 2MG CAPSU2 MG; +PRINIVIL10 MG
[2020-06-04 00:45] VITALS: BP 189/78; PULSE 65; TEMP 98.6
[2020-06-04] MEDS ORDERED: ULTRAM 50MG TAB50 MG PO (00:47)
== END 2020-06-04 01:02 | disposition home or self-care (01) ==
LOC: COL.ER 22:46
DX: H60.91 Unspecified otitis externa, right ear (principal); E11.9 Type 2 diabetes mellitus without complications; I10 Essential (primary) hypertension; Z79.82 Long term (current) use of aspirin; Z85.89 Personal history of malignant neoplasm of other organs and systems

== ENCOUNTER 2020-07-14 16:55 | Emergency (ER) | payer MEDICARE ==
[~2020-07-14] VITALS: Ht 175.3 cm; Wt 127.3 kg
[2020-07-14 16:58] VITALS: TEMP 98.2
[2020-07-14] MEDS ORDERED: ULTRAM 50MG TAB50 MG PO (18:22)
[2020-07-14 19:00] VITALS: BP 143/93; PULSE 76
== END 2020-07-14 19:00 | disposition home or self-care (01) ==
LOC: COL.ER 16:55
DX: S46.911A Strain of unspecified muscle, fascia and tendon at shoulder and upper arm level, right arm, initial encounter (principal); S20.211A Contusion of right front wall of thorax, initial encounter; I10 Essential (primary) hypertension; I25.2 Old myocardial infarction; Z86.711 Personal history of pulmonary embolism; Z85.89 Personal history of malignant neoplasm of other organs and systems; Z88.2 Allergy status to sulfonamides; Z88.6 Allergy status to analgesic agent; Z79.82 Long term (current) use of aspirin; W01.0XXA Fall on same level from slipping, tripping and stumbling without subsequent striking against object, initial encounter; Y92.009 Unspecified place in unspecified non-institutional (private) residence as the place of occurrence of the external cause